=== PATIENT | female | born 2000 | race Caucasian/White ===

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

== ENCOUNTER 2021-06-08 10:22 | Emergency (ER) | payer OTHER ==
[2021-06-08] MEDS ORDERED: HYDROCODON-ACE1 EAC4 PO (16:07)
[2021-06-08] MEDS ORDERED: IBU800 MG PO (16:08)
[2021-06-08] MEDS ORDERED: ONDANSETRON ODT4 MG PO (16:09)
[2021-06-08] MEDS ORDERED: HYDROXYZINE HCL50 MG PO (16:09)
[2021-06-08] MEDS ORDERED: METFORMIN HCL500 M2 PO (16:09)
[2021-06-08] MEDS ORDERED: BUPROPION HCL150 M1 PO (16:10)
== END 2021-06-08 13:03 | disposition home or self-care (01) ==
LOC: ER1 10:22
DX: S82.852A Displaced trimalleolar fracture of left lower leg, initial encounter for closed fracture (principal); W10.9XXA Fall (on) (from) unspecified stairs and steps, initial encounter
CPT/HCPCS: 73562; 73590; 73610; 99283